=== PATIENT | male | born 1955 | race Caucasian/White ===

== ENCOUNTER → 2018-10-31 | Outpatient (CLI) | payer OTHER | END | disposition home or self-care (01) | LOC: RAD 11:14 | DX: M17.0 Bilateral primary osteoarthritis of knee (principal); M54.2 Cervicalgia; M25.461 Effusion, right knee; J44.9 Chronic obstructive pulmonary disease, unspecified; I10 Essential (primary) hypertension; Z87.891 Personal history of nicotine dependence ==